=== PATIENT | female | born 1990 | race Caucasian/White ===

== ENCOUNTER 2017-04-28 19:38 | Emergency (ER) | payer MEDICAID ==
[~2017-04-28] VITALS: Ht 170.2 cm; Wt 102.5 kg
[2017-04-28 22:43] VITALS: BP 126/81
== END 2017-04-28 22:43 | disposition home or self-care (01) ==
LOC: ED 19:38
DX: S06.0X0A Concussion without loss of consciousness, initial encounter (principal); R55 Syncope and collapse; W20.8XXA Other cause of strike by thrown, projected or falling object, initial encounter; Y93.89 Activity, other specified; Y99.8 Other external cause status; Y92.89 Other specified places as the place of occurrence of the external cause
CPT/HCPCS: J1885

== ENCOUNTER 2017-07-14 11:22 | Emergency (ER) | payer OTHER ==
[2017-07-14 11:38] VITALS: BP 118/74
== END 2017-07-14 13:46 | disposition home or self-care (01) ==
LOC: ED 11:22
DX: J11.1 Influenza due to unidentified influenza virus with other respiratory manifestations (principal)
CPT/HCPCS: 87804; J2930; J7613; J7644